=== PATIENT | male | born 1955 | race Native Hawaiian/Other Pacific Islander ===

== ENCOUNTER 2021-11-15 16:24 | Outpatient (CLI) | payer MEDICARE | END 2021-11-15 16:25 | disposition home or self-care (01) | LOC: CSHRAD 16:24 | PROVIDERS: ATTEND Internal Medicine Gastroenterology | DX: R07.9 Chest pain, unspecified (principal) | CPT/HCPCS: 71046 ==

== ENCOUNTER 2021-12-13 14:54 | Outpatient (CLI) | payer MEDICARE, OTHER ==
[2021-12-14 03:28] LABS: SARS-CoV-2 PCR by NAA Not Detected (NotDetected)
== END 2021-12-13 14:55 | disposition home or self-care (01) ==
LOC: CSHLAB 14:54
PROVIDERS: ATTEND Internal Medicine Gastroenterology
DX: Z20.822 Contact with and (suspected) exposure to COVID-19 (principal); K21.9 Gastro-esophageal reflux disease without esophagitis
CPT/HCPCS: U0003; U0005